=== PATIENT | female | born 1930 | race Caucasian/White ===

== ENCOUNTER 2017-12-02 18:35 | Emergency (ER) | payer MEDICARE ==
[~2017-12-02] VITALS: Ht 157.5 cm; Wt 40.8 kg
[~2017-12-02 18:35] MED LIST: COREG12.5 MG PO; COUMADIN2.5 MG PO; FEOSOL325 MG PO; LOVENOX80 MG/0.8 SUB-Q; PRESERVISION A1 EACH PO; ST. JOSEPH ASPI81 M1 PO; SYNTHROID25 MCG PO; VITAMIN C250 MG PO; ZESTRIL20 MG PO; ZOCOR40 MG PO
--- NOTE | 2017-12-03 07:12 | EKG ---
[facility] [address] [place] [address] Signed Normal sinus rhythm Low voltage QRS Nonspecific ST abnormality Abnormal ECG No previous ECGs available Confirmed by ISRAEL DENISE MD ([id number]) on 12/03/2017 7:11:51 AM Electronically Signed By: ISRAEL DENISE MD 12/03/17711 PATIENT NAME: NELSON AMBROSE Electrocardiogram DATE OF : 34 PHYSICIAN: ISRAEL DENISE MD REPORT #: [id number] REPORT IS CONFIDENTIAL AND NOT TO BE RELEASED WITHOUT AUTHORIZATION
== END 2017-12-02 20:30 | disposition home or self-care (01) ==
LOC: ED 18:35
DX: M25.511 Pain in right shoulder (principal); I10 Essential (primary) hypertension; I25.2 Old myocardial infarction; E03.9 Hypothyroidism, unspecified; Z79.899 Other long term (current) drug therapy
CPT/HCPCS: 71046; 80053; 84484; 85025; 85610; 93005; 93010; 99284

== ENCOUNTER 2017-12-30 14:38 | Emergency (ER) | payer MEDICARE ==
[~2017-12-30] VITALS: Ht 157.5 cm; Wt 40.4 kg
[2017-12-30] MEDS ORDERED: SIMVASTATIN40 MG PO (14:50)
[2017-12-30] MEDS ORDERED: ASPIR-LOW81 MG PO (14:51)
== END 2017-12-30 15:45 | disposition home or self-care (01) ==
LOC: ED 14:38
DX: I80.8 Phlebitis and thrombophlebitis of other sites (principal); I10 Essential (primary) hypertension; E03.9 Hypothyroidism, unspecified; Z79.899 Other long term (current) drug therapy; Z79.82 Long term (current) use of aspirin
CPT/HCPCS: 93971; 99283

== ENCOUNTER 2018-01-31 13:51 | Emergency (ER) | payer MEDICARE ==
[~2018-01-31] VITALS: Ht 157.5 cm; Wt 40.4 kg
--- OUTSIDE RECORDS SUMMARY | ~2018-01-31 | XMS | Encounter Summary ---
Demographics + + + | Address | [address] | | | [place] [address] | + + + | Home Phone | | + + + | Preferred Language | Unknown | + + + | Marital Status | | + + + | Muslim Affiliation | Unknown | + + + | Race | Unknown | + + + | Ethnic Group | Unknown | + + + Author + + + | Author | [facility] | + + + | Organization | [facility] | + + + | Address | Unknown | + + + | Phone | Unavailable | + + + Support + + + + + | Name | Relationship | Address | Phone | + + + + + | Reed Koch | ECON | [address] | | | | | [place] | | | | | [address] | | + + + + + Care Team Providers + +------+ + | Care Software Engineering Associate Manager Name | Role | Phone | + +------+ + | Nataly Willian | PCP | | + +------+ + Reason for Visit +--------+ + | Reason | Comments | +--------+ + | Other | EKG | +--------+ + Encounter Details +--------+ + + + + | Date | Type | Department | Care Team | Description | +--------+ + + + + | 01/06/ | Documentati | [facility] | Tiki Damico | Other (EKG) | | 2018 | on Only | Cardiology Travis | [facility] | | | | | [address] | | | | | | [place] | | | | | | [address] | | | | | | [phone] | | | +--------+ + + + + Social History + +-------+ +--------+------+ | Tobacco Use | Types | Packs/Day | Years | Date | | | | | Used | | + +-------+ +--------+------+ | Never Smoker | | | | | + +-------+ +--------+------+ + +---+---+---+ | Smokeless Tobacco: | | | | | Never Used | | | | + +---+---+---+ + + +---------+ + | Alcohol Use | Drinks/We | oz/Week | Comments | | | ek | | | + + +---------+ + | No | 0 | 0.0 | | | | Standard | | | | | drinks or | | | | | | | | | | equivalen | | | | | t | | | + + +---------+ + + + + | Sex Assigned at | Date Recorded | | | | + + + | Not on file | | + + + as of this encounter Plan of Treatment +--------+---------+ + + + | Date | Type | Specialty | Care Team | Description | +--------+---------+ + + + | 07/13/ | Office | Cardiology | Babatunde Bowman, | | | 2019 | Visit | | MD Evette Otto | | | | | | Dr [place], | | | | | | [place] [address] | | | | | | [phone] | | | | | | | | +--------+---------+ + + + as of this encounter Visit Diagnoses Not on filein this encounter"
--- OUTSIDE RECORDS SUMMARY | ~2018-01-31 | XMS | Clinical Summary ---
Demographics + + + | Address | [address] | | | [place] [address] | + + + | Home Phone | | + + + | Preferred Language | Unknown | + + + | Marital Status | | + + + | Religion Affiliation | Unknown | + + + | Race | Unknown | + + + | Ethnic Group | Unknown | + + + Author + + + | Author | [facility] | + + + | Organization | [facility] | + + + | Address | Unknown | + + + | Phone | Unavailable | + + + Support + + + + + | Name | Relationship | Address | Phone | + + + + + | Reed Ambrose | ECON | [address] | | | | | [place] | | | | | [address] | | + + + + + Care Team Providers + +------+ + | Care Ton Cylinder Inspector Name | Role | Phone | + +------+ + | Nataly Willian | PP | | + +------+ + Allergies + + + + + + | Active Allergy | Reactions | Severity | Noted | Comments | | | | | Date | | + + + + + + | Carvedilol | Agitation | Low | 04/08/20 | Reported increased | | | | | 17 | agitation, | | | | | | sleeplessness and | | | | | | itching with | | | | | | increase dose of | | | | | | 12.5 mg | + + + + + + | Hydrocodone | Nausea and Vomiting | Medium | 01/08/20 | | | | | | 17 | | + + + + + + Current Medications + + +--------+---------+------+------+-------+ | Prescription | Sig. | Disp. | Refills | Star | End | Statu | | | | | | t | Date | s | | | | | | Date | | | + + +--------+---------+------+------+-------+ | aspirin EC 81 MG | Take 81 mg by mouth | | | | | Activ | | EC tablet | daily with | | | | | e | | | breakfast. | | | | | | + + +--------+---------+------+------+-------+ | nitroGLYCERIN | Place 0.4 mg under | | | | | Activ | | (NITROSTAT) 0.4 MG | the tongue every 5 | | | | | e | | SL tablet | (five) minutes as | | | | | | | | needed for Chest | | | | | | | | pain. | | | | | | + + +--------+---------+------+------+-------+ | gabapentin | Take 100 mg by mouth | | | | | Activ | | (NEURONTIN) 100 MG | as needed. Upsets | | | | | e | | capsule | her stomach | | | | | | + + +--------+---------+------+------+-------+ | LUTEIN-ZEAXANTHIN | Take 25 mg by mouth | | | | | Activ | | PO | daily. | | | | | e | + + +--------+---------+------+------+-------+ | ondansetron | Take 4 mg by mouth 2 | | | | | Activ | | (ZOFRAN) 4 MG tablet | (two) times daily | | | | | e | | | as needed for | | | | | | | | Nausea. | | | | | | + + +--------+---------+------+------+-------+ | carvedilol (COREG) | Take 1 tablet by | | | 12/12 | 12/12 | Activ | | 12.5 MG tablet | mouth 2 (two) times | | | 07/03 | 07/03 | e | | | daily. | | | 18 | 19 | | + + +--------+---------+------+------+-------+ | simvastatin | Take 1 tablet by | | | 12/12 | | Activ | | (ZOCOR) 40 MG tablet | mouth every evening. | | | 07/03 | | e | | | | | | 18 | | | + + +--------+---------+------+------+-------+ | lisinopril | Take 1 tablet by | 90 | 2 | 12/12 | 12/12 | Activ | | (ZESTRIL) 40 MG | mouth daily. | tablet | | 07/03 | 07/03 | e | | tablet | | | | 18 | 19 | | + + +--------+---------+------+------+-------+ Active Problems + + + | Problem | Noted Date | + + + | PAD (peripheral artery disease) | 10/17/2015 | + + + + + | Last Assessment & Plan: PAD, mild claudication, lobo femoral | | bruits. Walking exercises encouraged. We did discuss | | medications, and further testing if necessary. 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 85yo WF, modestly active, | | admits exertional weakness in the legs, claudication. She's not | | had any significant chest discomfort, shortness breath, | | palpitations, or lightheadedness. She states that her blood | | pressure should be good at home. Labs reviewed with patient. | | Tolerating medications. No changes in therapy.Hx CABG: noHx | | PCI/stent: 03/03/2005, LAD, (2.5*13mm Cypher MELANIE).Hx | | Pacemaker/ICD: noLast Cath, 02/24/2011: revealed patent stent and | | borderline stenosis estimated between 40%-50% at the ostium of | | the left main, rneae-lateral and inferior akinesis, LVEF | | 40-45%.Last Echo, 09/25/2011: revealed normal left ventricular | | systolic function with an ejection fraction of 55%-60%. There | | was evidence of moderate to severe mitral regurgitation and mild | | tricuspid regurgitation. The pulmonary artery systolic pressure | | was normal at 50 mmHg. Last stress test, 12/20/2014: Modified, 4 | | METS, no chest pain, ECG mildly (+) for ischemia, 1.0-1.5mm ST | | depression in leads II, III, aVF, V6.ECG, 10/17/2015: NSR, 64bpm. | + + + + + | Hyperlipidemia | 07/06/2013 | + + + + + | Last Assessment & Plan: Hyperlipidemia, at goal, continue | | current meds current dose (simvastatin). Labs reviewed | | patient.Lab, 02/04/2016: T Chol: 136, LDL-Chol: 72, HDL-Chol: 40, | | Tri CPK: 61, Liver enzymes NML, K: | | 4.6, BUN/Cr: 14/0.8, glu: 98 | + + + + + | Encounter for long-term (current) use of other medications | 06/08/2013 | + + + | Mitral valve disorders(424.0) | 06/08/2013 | + + + + + | Last Assessment & Plan: MR. Clinically stable.Last Echo, | | 09/25/2011: revealed normal left ventricular systolic function | | with an ejection fraction of 55%-60%. There was evidence of | | moderate to severe mitral regurgitation and mild tricuspid | | regurgitation. The pulmonary artery systolic pressure was normal | | at 50 mmHg. | + + + + + | Occlusion and stenosis of carotid artery without mention of | 06/08/2013 | | cerebral infarction | | + + + + + | Last Assessment & Plan: Left carotid bruit. Remains | | asymptomatic, denying any new visual disturbances, dysarthria, | | dysphasia, lateralizing signs or symptoms.Last Carotid US, | | 12/20/2012: mild disease, lobo. | + + Encounters +--------+ + + + + | Date | Type | Specialty | Care Team | Description | +--------+ + + + + | 01/06/ | Documentati | | Tiki Damico | Other (EKG) | | 2017 | on Only | | [facility] | | +--------+ + + + + | 01/06/ | Documentati | | Tiki Damico | Labs Only | | 2018 | on Only | | [facility] | | +--------+ + + + + | 12/22/ | Office | | Babatunde Bowman, | Mitral valve | | 2018 | Visit | | MD | disorders(424.0) | | | | | | (Primary Dx); | | | | | | Coronary artery | | | | | | disease involving | | | | | | [place] coronary | | | | | | artery of [place] | | | | | | heart with angina | | | | | | pectoris (HCC); | | | | | | Mixed hyperlipidemia | +--------+ + + + + | 11/15/ | Orders Only | | Elizabeth Jefferson | | | 2018 | | | VIVIEN Jones | | +--------+ + + + + from Last 3 Months Family History + + +------+ + | Medical History | Relation | Name | Comments | + + +------+ + | Heart Disease | Father | | | + + +------+ + | COPD | Mother | | | + + +------+ + | Congenital Heart | Mother | | | | Disease | | | | + + +------+ + | High blood pressure | Mother | | | + + +------+ + + +------+ + + | Relation | Name | Status | Comments | + +------+ + + | Father | | | heart disease, alcoholic | | | | (Age | | | | | 87) | | + +------+ + + | Mother | | | COPD,CHD, (smoker),HTN | | | | (Age | | | | | 74) | | + +------+ + + Social History + +-------+ +--------+------+ [...] on file | | + + + Last Filed Vital Signs + + + + | Vital Sign | Reading | Time Taken | + + + + | Blood Pressure | 146/74 | 12/22/2017 12:57 PM PDT | + + + + | Pulse | 65 | 12/22/2017 12:57 PM PDT | + + + + | Temperature | - | - | + + + + | Respiratory Rate | 15 | 04/29/2016 2:28 PM PST | + + + + | Oxygen Saturation | 99% | 12/22/2017 12:57 PM PDT | + + + + | Inhaled Oxygen | - | - | | Concentration | | | + + + + | Weight | 40.3 kg (88 lb 14.4 | 12/22/2017 12:57 PM PDT | | | oz) | | + + + + | Height | 154.9 cm (5' 1") | 12/22/2017 12:57 PM PDT | + + + + | Body Mass Index | 16.8 | 12/22/2017 12:57 PM PDT | + + + + Plan of Treatment +--------+---------+ + + + | Date | Type | Specialty | Care Team | Description | +--------+---------+ + + + | 07/13/ | Office | | Babatunde Bowman, | | | 2018 | Visit | | MD Evette Otto | | | | | | Dr [place], | | | | | | [place] [address] | | | | | | [phone] | | | | | | | | +--------+---------+ + + + + + + + + | Health Maintenance | Due Date | Last Done | Comments | + + + + + | Vaccine: | | | | | Dtap/Tdap/Td (1 - | 2 | | | | Tdap) | | | | + + + + + | DEXA SCAN SCREENING | | | | | | 8 | | | + + + + + | Vaccine: | | | | | Pneumococcal 65+ | 8 | | | | Low/Medium Risk (1 | | | | | of 2 - PCV13) | | | | + + + + + | Vaccine: Influenza | | | | | (#1) | 8 | | | + + + + + Results Not on filefrom Last 3 Months Insurance + +--------+ +------+-------+ + | Payer | Benefi | Subscriber | Type | Phone | Address | | | t Plan | ID | | | | | | / | | | | | | | Group | | | | | + +--------+ +------+-------+ + | MEDICARE | MEDICA | [id number] | | | [address] | | | [place] | | | | [place] [address] | | | IP-OP | | | | | + +--------+ +------+-------+ + + +--------+ +--------+ + + | Guarantor Name | Accoun | Relation to | Date | Phone | Billing Address | | | t Type | Patient | of | | | | | | | | | | + +--------+ +--------+ + + | KHADAR AMBROSE | Person | Self [birth year] | Work: | [address] | | | eduardo[employer] | | [phone] | [phone] | [place] | | | yared | | | [phone]: | [address] | | | | | | | | | | | | [phone] | | | | | | [phone] | | + +--------+ +--------+ + +
--- OUTSIDE RECORDS SUMMARY | ~2018-01-31 | XMS | Encounter Summary ---
Demographics + + + | Address | [address] | | | [place] [address] | + + + | Home Phone | | + + + | Preferred Language | Unknown | + + + | Marital Status | | + + + | Bahai Affiliation | Unknown | + + + | Race | Unknown | + + + | Ethnic Group | Unknown | + + + Author + + + | Author | [facility] | + + + | Organization | [facility] | + + + | Address | Unknown | + + + | Phone | Unavailable | + + + Support + + + + + | Name | Relationship | Address | Phone | + + + + + | Reed Koch | ECON | [address] | | | | | [place] | | | | | [address] | | + + + + + Care Team Providers + +------+ + | Care Range Mounter Name | Role | Phone | + [...] [place] | | | | | | [address] | | | | | | [phone] | | | +--------+ + + + [...] [place], | | | | | | [place] [address] | | | | | | [phone] | | | | | | | | +--------+---------+ + + + as of this encounter Visit Diagnoses Not on filein this encounter"
--- OUTSIDE RECORDS SUMMARY | ~2018-01-31 | XMS | Encounter Summary ---
Demographics + + + | Address | [address] | | | [place] [address] | + + + | Home Phone | | + + + | Preferred Language | Unknown | + + + | Marital Status | | + + + | Religion Affiliation | Unknown | + + + | Race | Unknown | + + + | Ethnic Group | Unknown | + + + Author + + + | Author | [facility] | + + + | Organization | [facility] | + + + | Address | Unknown | + + + | Phone | Unavailable | + + + Support + + + + + | Name | Relationship | Address | Phone | + + + + + | Reed Koch | ECON | [address] | | | | | [place] | | | | | [address] | | + + + + + Care Team Providers + +------+ + | Care Research Lab Assistant Name | Role | Phone | + +------+ + | Nataly Willian | PCP | | + +------+ + Reason for Visit + + + | Reason | Comments | + + + | Follow-up | 4 month | + + + Encounter Details +--------+---------+ + + + | Date | Type | Department | Care Team | Description | +--------+---------+ + + + | 12/22/ | Office | [facility] | Babatunde Bowman, | Mitral valve | | 2018 | Visit | Cardiology [place] | [address] | disorders(424.0) | | | | [address] | [address] [place], | (Primary Dx); | | | | [facility] [address] | [place] [address] | Coronary artery | | | | [place] [address] | [phone] | disease involving | | | | [phone] | | [place] coronary | | | | | | artery of [place] | | | | | | heart with angina | | | | | | pectoris (HCC); | | | | | | Mixed hyperlipidemia | +--------+---------+ + + + Social History + +-------+ [...] + + + as of this encounter Last Filed Vital Signs + + + [...] + + + | Respiratory Rate | - | - | + + + + | Oxygen [...] PM PDT | + + + + in this encounter Progress Notes Babatunde Bowman MD - 12/22/2017 1:00 PM PDTFormatting of this note may be different fro m the original. Date of visit: 12/22/2017 Primary Care Physician: WILLIAN OSMAN CHIEF COMPLAINT: Chief Complaint Patient presents with Follow-up 4 month HISTORY OF PRESENT ILLNESS: Khadar is 87 y.o. here for follow-up visit. Used to follow up with Elizabeth Jones and prior with Dr. Menon. Denies any chest pain or shortness of breath. Still modestly active with no cardiac limitat ions. Blood pressure continues to be higher than goal. Rechecked blood pressure today and it is 180/90 mmHg. Denies any symptoms. Currently taking Lisinopril 20 mg and Carvedilol 12.5. Couldn't tolerate HCTZ. Previous history of coronary artery disease with no anginal symptoms. Appetite is low and continue to loss weight. Past medical history, SH, FH, and medications were reviewed in the chart. Medications: Outpatient Encounter Prescriptions as of 12/22/2017 Medication Sig Dispense Refill aspirin EC 81 MG EC tablet Take 81 mg by mouth daily with breakfast. carvedilol (COREG) 12.5 MG tablet Take 1 tablet by mouth 2 (two) times daily. lisinopril (ZESTRIL) 40 MG tablet Take 1 tablet by mouth daily. 90 tablet 2 nitroGLYCERIN (NITROSTAT) 0.[address] 0.4 mg under the tongue every 5 (five) minutes as needed for Chest pain. simvastatin (ZOCOR) 40 MG tablet Take 1 tablet by mouth every evening. [DISCONTINUED] carvedilol (COREG) 6.25 MG tablet Take 1 tablet by mouth 2 (two) times d aily. (Patient taking differently: Take 12.5 mg by mouth 2 (two) times daily.) 30 tablet 11 [DISCONTINUED] lisinopril (ZESTRIL) 20 MG tablet Take 1 tablet by mouth daily. 90 table t 2 [DISCONTINUED] simvastatin (ZOCOR) 40 MG tablet Take 0.5 tablets by mouth every evening . (Patient taking differently: Take 40 mg by mouth every evening.) 90 tablet 3 gabapentin (NEURONTIN) 100 MG capsule Take 100 mg by mouth as needed. Upsets her stomac h LUTEIN-ZEAXANTHIN PO Take 25 mg by mouth daily. ondansetron (ZOFRAN) 4 MG tablet Take 4 mg by mouth 2 (two) times daily as needed for N ausea. No facility-administered encounter medications on file as of 12/22/2017. Allergies Allergies Allergen Reactions Hydrocodone Nausea and Vomiting Carvedilol Agitation Reported increased agitation, sleeplessness and itching with increase dose of 12.5 mg REVIEW OF SYSTEMS: Constitutional: mild fatigue and weight loss. HEENT: Negative for nosebleeds, ear discharge, nasal congestion or soar throat. Eyes: Negative for visual disturbance, redness, or secretion. Respiratory: Negative for cough, sputum production, hemoptysis, wheezing. Cardiovascular: As HPI. Gastrointestinal: mild nausea and low appetite. Genitourinary: Negative for dysuria or hematuria. Musculoskeletal: As HPI. Skin: Negative for rash. Neurological: Negative for dizziness. No numbness. No recent falls. No slurred speech. Hematological: No significant bruising. Psychiatric/Behavioral: No depression or anxiety. PHYSICAL EXAM Vital Signs: BP 146/74 (BP Location: Left upper arm, Patient Position: Sitting) | Pulse 65 | Ht 1.549 m (5' 1") | Wt (!) 40.3 kg (88 lb 14.4 oz) | SpO2 99% | BMI 16.80 kg/m GENERAL APPEARANCE: cachetic. Alert, oriented, cooperative, no distress, appears stated age . HEENT: Extraocular movements were intact. No jaundice. Pupiles round and reactive. NECK: No JVD, lymphadenopathy. Carotid upstrokes normal. No carotid bruit heard. CARDIAC: Regular rhythm and rate. There is normal S1 and S2. No galop. No murmur. CHEST: Normal bilateral symmetrical chest excursion.ackles or wheezing. No evidence of dull ness. ABDOMEN: Soft.No tenderness or guarding. No palpable organs. Active bowel sounds. EXTREMITIES: No lower extremities edema, cyanosis or clubbing. NEURO: Alert and oriented times three with no focal deficit. Cranial nerves are grossly no rmal. SKIN: Warm and dry. No rash. Psych: Normal affect and mood. DATA 12/02/2017 WBC 9.2, hemoglobin 12.4, platelets 311. Sodium 135, potassium 3.9, chloride 106, bicarbona te 23, BUN 10, creatinine 0.55. GFR 105, AST 24, AST 16, alk phos 127. Lab Results Component Value Date/Time NA 142 12/14/2016 09:25 AM NA 140 12/12/2014 08:55 AM NA 138 03/15/2013 09:10 AM K 4.5 12/14/2016 09:25 AM K 4.4 12/12/2014 08:55 AM K 4.6 03/15/2013 09:10 AM CO2 23 12/14/2016 09:25 AM CO2 26 12/12/2014 08:55 AM CO2 27 03/15/2013 09:10 AM BUN 9 12/14/2016 09:25 AM BUN 10 12/12/2014 08:55 AM BUN 10 03/15/2013 09:10 AM CREATININE 0.74 12/14/2016 09:25 AM CREATININE 0.87 12/12/2014 08:55 AM CREATININE 0.89 03/15/2013 09:10 AM Lab Results Component Value Date/Time WBC 6.6 02/25/2011 09:54 AM HGB 11.9 02/25/2011 09:54 AM HCT 34.5 (L) 02/25/2011 09:54 AM MCV 91.3 02/25/2011 09:54 AM PLT 208 02/25/2011 09:54 AM Lab Results Component Value Date CHOL 128 12/14/2016 CHOL 143 12/12/2014 TRIG 75 12/14/2016 TRIG 119 12/12/2014 HDL 41.4 12/14/2016 HDL 40.0 12/12/2014 LDL 72 12/14/2016 LDL 79 12/12/2014 GLUF 87 12/14/2016 GLUF 92 12/12/2014 EC12/02/2017 From [facility] showed normal sinus rhythm with nonspecific ST-T wave changes. Last Echo: 01/15/2017 Reported with normal LV size and function EF 60%. Sigmoid septum. 1 diastolic dysfunction. Normal RV size and function. Calcified aortic valve with moderate regurgitation. Mild stenosis with mean gradient of 6 m mHg. Mild mitral valve posterior leaflet prolapse with moderate regurgitation. Mild TR with moderate pulmonary hypertension RVSP 52 mmHg Last stress test, 12/20/2014: Modified, 4 METS, no chest pain, ECG mildly (+) for ischemia, 1.0-1.5mm ST depression in le ads II, III, aVF, V6. Last US carotid: Last Cath, 02/24/2011: Revealed patent stent and borderline stenosis estimated between 40%-50% at the ostium of th e left main, renae-lateral and inferior akinesis, LVEF 40-45%. 03/03/2005, LAD, (2.5*13mm Cy pher MELANIE). ASSESSMENT: Patient is 87 y.o. with the following medical problems. 1. Coronary artery disease with no anginal symptoms. 2. Hypertension blood pressure is above goal. 3. Weight loss, unintentional. 4. Hypothyroidism, couldn't tolerate Levothyroxine. Plan: Reviewed patient's records. Repeated blood pressure taken by my self was 180/90 mmHg. Will increase Lisinopril to 40 mg. Continue with Carvedilol 12.5. Patient encourage to increase oral intake. Will follow up with Dr. Osman. Will continue monitoring blood pressure. Follow up in 6 month, will call with change in symptoms. *This report has been prepared using a voice recognition system. The report was reviewed fo r accuracy, however, sound-alike word errors, addition and/or deletions may occur. If there is any question about this report please contact me. Mike Montoya MD this encounter Plan of Treatment +--------+---------+ + + + | Date | Type | Specialty | Care Team | Description | +--------+---------+ + + + | 07/13/ | Office | Cardiology | Babatunde Bowman, | | | 2018 | Visit | | MD Evette Otto | | | | | | Dr [place], | | | | | | [place] [address] | | | | | | [phone] | | | | | | | | +--------+---------+ + + + as of this encounter Visit Diagnoses + + | Diagnosis | + + | Mitral valve disorders(424.0) - Primary | + + | Other and unspecified mitral valve diseases | + + | Coronary artery disease involving [place] coronary artery of [place] heart with angina | | pectoris (HCC) | + + | Mixed hyperlipidemia | + +
--- OUTSIDE RECORDS SUMMARY | ~2018-01-31 | XMS | Encounter Summary ---
Demographics + + + | Address | [address] | | | [place] [address] | + + + | Home Phone | | + + + | Preferred Language | Unknown | + + + | Marital Status | | + + + | Sabianism Affiliation | Unknown | + + + | Race | Unknown | + + + | Ethnic Group | Unknown | + + + Author + + + | Author | [facility] | + + + | Organization | [facility] | + + + | Address | Unknown | + + + | Phone | Unavailable | + + + Support + + + + + | Name | Relationship | Address | Phone | + + + + + | Reed Koch | ECON | [address] | | | | | [place] | | | | | [address] | | + + + + + Care Team Providers + +------+ + | Care Therapist'S Assistant Name | Role | Phone | [...] | (Primary Dx); | | | | [facility] [address] | [place] [address] | Coronary artery | | | | [place] [address] | [phone] | disease involving | | | | [phone] | | [place] coronary | | | | | | artery of [place] | | | | | | heart [...] 87 12/14/2016 GLUF 92 12/12/2014 EC12/02/2017 From [facility] showed normal sinus rhythm with nonspecific ST-T [...] | | | | | | [place] [address] | | | | | | [phone] | | | | | | | | +--------+---------+ + + + as of this encounter Visit Diagnoses + + | Diagnosis | + + | Mitral valve disorders(424.0) - Primary | + + | Other and unspecified mitral valve diseases | + + | Coronary artery disease involving [place] coronary artery of [place] heart with angina | | pectoris (HCC) | + + | Mixed hyperlipidemia | + +
--- OUTSIDE RECORDS SUMMARY | ~2018-01-31 | XMS | Encounter Summary ---
Demographics + + + | Address | [address] | | | [place] [address] | + + + | Home Phone | | + + + | Preferred Language | Unknown | + + + | Marital Status | | + + + | Mandaen Affiliation | Unknown | + + + | Race | Unknown | + + + | Ethnic Group | Unknown | + + + Author + + + | Author | [facility] [facility] [facility] | + + + | Organization | [facility] | + + + | Address | Unknown | + + + | Phone | Unavailable | + + + Support + + + + + | Name | Relationship | Address | Phone | + + + + + | Reed Koch | ECON | [address] | | | | | [place] | | | | | [address] | | + + + + + Care Team Providers + +------+ + | Care Millwright Name | Role | Phone | + +------+ + | Willian Ingram DO | PCP | | + +------+ + Reason for Visit + + + | Reason | Comments | + + + | Labs Only | | + + + Encounter Details +--------+ + + + + | Date | Type | Department | Care Team | Description | +--------+ + + + + | 01/06/ | Documentati | [facility] | [facility] | Labs Only | | 2018 | on Only | Cardiology [place], [place] | | | | | [address] | | | | | | [place] | | | | | | [address] | | | | | | [phone] | | | +--------+ + + + [...] [place], | | | | | | [place] [address] | | | | | | [phone] | | | | | | | | +--------+---------+ + + + as of this encounter Visit Diagnoses Not on filein this encounter"
--- OUTSIDE RECORDS SUMMARY | ~2018-01-31 | XMS | Clinical Summary ---
Demographics + + + | Address | [address] | | | [place] [address] | + + + | Home Phone | | + + + | Preferred Language | Unknown | + + + | Marital Status | | + + + | Yazidism Affiliation | Unknown | + + + | Race | Unknown | + + + | Ethnic Group | Unknown | + + + Author + + + | Author | [facility] [employer] [facility] | + + + | Organization | [facility] | + + + | Address | Unknown | + + + | Phone | Unavailable | + + + Support + + + + + | Name | Relationship | Address | Phone | + + + + + | Reed Ambrose | ECON | [address] | | | | | [place] | | | | | [address] | | + + + + + Care Team Providers + +------+ + | Care Juvenile Counselor Name | Role | Phone | + [...] + + | 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) | | [...] ostium of | | the left main, renae-lateral and inferior akinesis, LVEF | | 40-45%.Last [...] involving | | | | | | rincon coronary | | | | | | artery of rincon | | | | | | heart [...] | | | | | | [place] [address] | | | | | | [phone] | | | | | | | [...] +------+-------+ + | MEDICARE | MEDICA | [id number] | | | [address] | | | [place] | | | | [place] [address] | | | IP-OP | | | [...] | Self | [birth year] | Work: | [address] | | | eduardo/Edd | | 1931 | [phone] | [place] | | | yared | | | [phone]: | [address] | | | | | | | | | | | | | [phone] | | | | | | | 0310 | | + +--------+ +--------+ + +
--- OUTSIDE RECORDS SUMMARY | ~2018-01-31 | XMS | Encounter Summary ---
Demographics + + + | Address | [address] | | | [place] [address] | + + + | Home Phone | | + + + | Preferred Language | Unknown | + + + | Marital Status | | + + + | Uatsdin Affiliation | Unknown | + + + | Race | Unknown | + + + | Ethnic Group | Unknown | + + + Author + + + | Author | [facility] [employer] [facility] | + + + | Organization | [facility] | + + + | Address | Unknown | + + + | Phone | Unavailable | + + + Support + + + + + | Name | Relationship | Address | Phone | + + + + + | Reed Koch | ECON | [address] | | | | | [place] | | | | | [address] | | + + + + + Care Team Providers + +------+ + | Care Sr. Director Product Management Name | Role | Phone | + +------+ + | Zan Mendez MD | PCP | | + +------+ + Encounter Details +--------+ + + + + | Date | Type | Department | Care Team | Description | +--------+ + + + + | 11/15/ | Orders Only | [facility] | [facility] | | | 2017 | | Cardiology [place] | [address] | | | | | [address] | [address]am [address] | | | | | [facility] [address] | [place] [address] | | | | | [place] [address] | [phone] | | | | | [phone] | | | +--------+ + + + [...] | | | | | | [place] [address] | | | | | | [phone] | | | | | | | | +--------+---------+ + + + as of this encounter Visit Diagnoses Not on filein this encounter"
--- OUTSIDE RECORDS SUMMARY | ~2018-01-31 | XMS | Encounter Summary ---
Demographics + + + | Address | [address] | | | [place] [address] | + + + | Home Phone | | + + + | Preferred Language | Unknown | + + + | Marital Status | | + + + | Bahai Affiliation | Unknown | + + + | Race | Unknown | + + + | Ethnic Group | Unknown | + + + Author + + + | Author | [facility] | + + + | Organization | [facility] | + + + | Address | Unknown | + + + | Phone | Unavailable | + + + Support + + + + + | Name | Relationship | Address | Phone | + + + + + | Reed Koch | ECON | [address] | | | | | [place] | | | | | [address] | | + + + + + Care Team Providers + +------+ + | Care In Home Baby Sitter Name | Role | Phone | + [...] | | | | | | [place] | | | | | | [address] | | | | | | [phone] | | | +--------+ + + + [...] [place], | | | | | | [place] [address] | | | | | | [phone] | | | | | | | | +--------+---------+ + + + as of this encounter Visit Diagnoses Not on filein this encounter"
--- OUTSIDE RECORDS SUMMARY | ~2018-01-31 | XMS | Encounter Summary ---
Demographics + + + | Address | [address] | | | [place] [address] | + + + | Home Phone | | + + + | Preferred Language | Unknown | + + + | Marital Status | | + + + | Jew Affiliation | Unknown | + + + | Race | Unknown | + + + | Ethnic Group | Unknown | + + + Author + + + | Author | [facility] | + + + | Organization | [facility] | + + + | Address | Unknown | + + + | Phone | Unavailable | + + + Support + + + + + | Name | Relationship | Address | Phone | + + + + + | Reed Koch | ECON | [address] | | | | | [place] | | | | | [address] | | + + + + + Care Team Providers + +------+ + | Care Ironworker Helper Shop Name | Role | Phone | + [...] [address] | | | | | [facility] [address] | [place] [address] | | | | | [place] [address] | [phone] | | | | | [phone] | | | +--------+ + + + [...] | | | | | | [place] [address] | | | | | | [phone] | | | | | | | | +--------+---------+ + + + as of this encounter Visit Diagnoses Not on filein this encounter"
[~2018-01-31 13:51] MED LIST changes: +ASPIR-LOW81 MG PO; +SIMVASTATIN40 MG PO
[2018-01-31] MEDS ORDERED: ZOFRAN ODT4 MG PO (17:56)
--- NOTE | 2018-02-01 18:21 | EKG ---
[facility] [address] [place], [place] [address] Signed Normal sinus rhythm Cannot rule out Anterior infarct , age undetermined Abnormal ECG When compared with ECG of 02-DEC-2017 18:51, No significant change was found Confirmed by LUIS FERNANDO RENE DO ([id number]) on 02/01/2018 6:21:16 PM Electronically Signed By: LUIS FERNANDO RENE DO 02/01/181820 PATIENT NAME: NELSON AMBROSE ADELSO Electrocardiogram DATE OF : 34 PHYSICIAN: LUIS FERNANDO RENE DO REPORT #: [id number] REPORT IS CONFIDENTIAL AND NOT TO BE RELEASED WITHOUT AUTHORIZATION
[2018-02-02] MEDS ORDERED: NORCO 5-325 TA1 EACH PO (10:16)
== END 2018-01-31 18:33 | disposition home or self-care (01) ==
LOC: ED 13:51
DX: C16.9 Malignant neoplasm of stomach, unspecified (principal); C56.9 Malignant neoplasm of unspecified ovary; I10 Essential (primary) hypertension; Z79.899 Other long term (current) drug therapy; Z79.82 Long term (current) use of aspirin
CPT/HCPCS: 71045; 74177; 80053; 81001; 84484; 85025; 93005; 93010; 96374; 96375; 99285; J2270; J2405; Q9967